=== PATIENT | female | born 1985 | race Caucasian/White ===

== ENCOUNTER 2017-11-30 05:24 | Inpatient (IN) | payer OTHER ==
[~2017-11-30] VITALS: Ht 149.9 cm; Wt 78.0 kg
[~2017-11-30 05:24] MED LIST: NIFE60TA3 PO; OBTREX DHA PRE1 EACH PO
== END 2017-12-02 15:15 | DRG 775 ==
LOC: LDR 05:24 → OB/GYN 05:24 → LDR 05:39 → OB/GYN 21:20 → SURH 12-08 13:50
PROC: 10E0XZZ Delivery of Products of Conception, External Approach (ICD-10-PCS; principal; 2017-11-30)
PROC: 0HQ9XZZ Repair Perineum Skin, External Approach (ICD-10-PCS; 2017-11-30)
PROC: 4A1HXCZ Monitoring of Products of Conception, Cardiac Rate, External Approach (ICD-10-PCS; 2017-11-30)
PROC: 10907ZC Drainage of Amniotic Fluid, Therapeutic from Products of Conception, Via Natural or Artificial Opening (ICD-10-PCS; 2017-11-30)
DX: O70.1 Second degree perineal laceration during delivery (principal); Z37.0 Single live birth; Z3A.39 39 weeks gestation of pregnancy; O99.013 Anemia complicating pregnancy, third trimester; D64.89 Other specified anemias

== ENCOUNTER 2022-12-18 13:27 | Emergency (ER) | payer OTHER ==
[~2022-12-18] VITALS: Ht 149.9 cm; Wt 64.9 kg
[2022-12-18] MEDS ORDERED: DICLOFENAC SODI75 MG PO (18:41)
[2022-12-18] MEDS ORDERED: BACTRIM DS TAB1 EACH PO (18:41)
== END 2022-12-18 18:49 | disposition home or self-care (01) ==
LOC: ER 13:27
DX: N39.0 Urinary tract infection, site not specified (principal); Z91.018 Allergy to other foods